=== PATIENT | female | born 1965 | race Caucasian/White ===

== ENCOUNTER 2025-05-18 09:22 | Outpatient (CLI) | payer SELFPAY ==
--- NOTE | ~2025-05-18 | MMUS_ITS ---
EXAMINATION: US breast BI limited, MM diag sanchez implant BI w lorna HISTORY: Bilateral palpable abnormalities TECHNIQUE: Craniocaudal and mediolateral oblique 3-D tomosynthesis images were obtained and synthetic 2-D images were generated. CAD analysis was submitted and interpreted. Grayscale sonography over the area(s) of interest with color Doppler if there is a finding. COMPARISON: None available. BREAST PARENCHYMAL COMPOSITION: The breast tissue is heterogeneously dense, which lowers the sensitivity of mammography. MAMMOGRAM FINDINGS: There are bilateral retropectoral saline implants. The presence of implants limits the sensitivity of mammography. No suspicious masses are seen. There are no suspicious calcifications. No unexplained architectural distortion is seen. There are no skin or nipple abnormalities identified. There is no adenopathy seen on the images submitted. ULTRASOUND FINDINGS: No cystic or solid masses are seen in the area(s) of concern on either side. IMPRESSION: No mammographic evidence to suggest malignancy is seen. Negative or inconclusive breast imaging studies should not deter biopsy if there are clinically suspicious palpable abnormalities. The patient may return to screening mammography as per ACR guidelines. BI-RADS Code: 1 - Negative. Reviewed, dictated and finalized at location B. [facility] IMPRESSION: No mammographic evidence to suggest malignancy is seen. Negative or inconclusiv e breast imaging studies should not deter biopsy if there are clinically suspic ious palpable abnormalities. The patient may return to screening mammography a s per ACR guidelines. BI-RADS Code: 1 - Negative.
== END 2025-05-18 09:23 | disposition home or self-care (01) ==
LOC: CHSIMG 09:27
DX: N63.20 Unspecified lump in the left breast, unspecified quadrant (principal); N63.10 Unspecified lump in the right breast, unspecified quadrant
CPT/HCPCS: 76642; 77062; 77066; G0279